=== PATIENT | male | born 1990 | race Caucasian/White ===

== ENCOUNTER → 2019-04-02 | Emergency (ER) | payer SELFPAY ==
[~2019-04-02] VITALS: Ht 160 cm; Wt 78.0 kg
[~2019-04-02] MED LIST: IBUP-1542 PO; IBUPROFEN 600 MG TAB PO ONE
[2019-04-02 14:13] VITALS: BP 124/69; PULSE 69; RESP 18; Ht 160 cm; Wt 78.0 kg
--- NOTE | 2019-04-02 15:06 | ERD ---
ER Documentation Chief Complaint Chief Complaint RIGHT ANKLE PAIN HPI 28-year-old male presents with right ankle pain after twisting while playing soccer today. He has pain in the right lateral malleolus area. Denies any head injury, neck injury, bleeding, additional symptoms. ROS All systems reviewed and are negative except as per history of present illness. Medications Home Meds Active Scripts Ibuprofen* (Motrin*) 600 Mg Tab, 600 MG PO Q6, #20 TAB Prov:GORAN VERDE MD 04/02/19 PMhx/Soc Medical and Surgical Hx: pt denies Medical Hx, pt denies Surgical Hx History of Surgery: No Hx Neurological Disorder: No Hx Respiratory Disorders: No Hx Cardiac Disorders: No Hx Psychiatric Problems: No Hx Miscellaneous Medical Probl: No Hx Alcohol Use: No Hx Substance Use: No Hx Tobacco Use: No Smoking Status: Never smoker Physical Exam Vitals Vital Signs Date Temp Pulse Resp B/P (MAP) Pulse Ox O2 O2 Flow FiO2 Time Delivery Rate 04/02/19 98.1 69 18 124/69 99 14:13 (87) Physical Exam Const: No acute distress Head: Atraumatic Eyes: Normal Conjunctiva ENT: Normal External Ears, Nose and Mouth. Neck: Full range of motion. No meningismus. Resp: Clear to auscultation bilaterally Cardio: Regular rate and rhythm, no murmurs Abd: Soft, non tender, non distended. Normal bowel sounds Skin: No petechiae or rashes Back: No midline or flank tenderness Ext: No cyanosis, or edema. Tenderness and swelling over the right lateral malleolus. No erythema or warmth. No tenderness or deformities of the foot or toes. No appreciable knee or proximal tib-fib tenderness or deformities. Neur: Awake and alert Psych: Normal Mood and Affect Results 24 hrs Current Medications Medications Dose Sig/Verna Start Time Status Last (Trade) Ordered Route PRN Stop Time Admin Dose Reason Admin Ibuprofen 600 mg ONCE ONCE 04/02/19 DC 04/02/19 (Motrin) PO 14:30 14:29 04/02/19 14:31 Procedures/MDM X-ray right ankle 3V Interpreted by me: Bones: No fracture Joints: No dislocation Foreign Body: None. Impression-soft tissue swelling without findings of fracture dislocation on right ankle x-ray Placed in a right ankle stirrup splint neurovascular intact after splint. Patient also administered crutches with crutch training given ibuprofen for pain. Patient presents with signs and symptoms of right ankle sprain without signs of fracture dislocation, ischemia, deficits or infection. Discharged home with ibuprofen, recommendations for ice, elevation, primary care follow-up and return precautions for fevers, redness, new or worsening symptoms. The patient was stable with no new complaints during the ER course. Clinically, there is no current evidence to suggest meningitis, sepsis, acute abdomen, pneumonia, stroke, acute coronary syndrome, pulmonary embolism, aortic dissection or any other emergent condition appearing to require further evaluation or hospitalization. Patient counseled regarding my diagnostic impression and care plan. Prior to discharge all questions answered. Pt agrees with treatment plan and understands strict return precautions. Pt is instructed to follow up with primary care provider within 24-48 hours. Precautionary instructions provided including instructions to return to the ER if not improving or for any worsening or changing symptoms or concerns. Disclaimer: Inadvertent spelling and grammatical errors are likely due to EHR/dictation software use and do not reflect on the overall quality of patient care. Also, please note that the electronic time recorded on this note does not necessarily reflect the actual time of the patient encounter. Departure Diagnosis: Primary Impression: Ankle injury Encounter type: initial encounter Laterality: right Qualified Codes: S99.911A - Unspecified injury of right ankle, initial encounter Condition: Stable Patient Instructions: What Are Ankle Sprains?, Treating Ankle Sprains Referrals: NO PRIMARY,CARE PHYSICIAN (PCP) Additional Instructions: x ray palmer normal. Va al nunez doctor/ specialista para mas evaluacon en el proximo semana. posiblemente necesita autorizado de nunez doctor primario para specialista. Regresa para fiebre, o mas o nueva simptomas. GORAN VERDE MD Apr 02, 2019 15:06
== END | disposition home or self-care (01) ==
LOC: FTE 14:11
DX: S99.911A Unspecified injury of right ankle, initial encounter (principal); X50.0XXA Overexertion from strenuous movement or load, initial encounter; Y92.322 Soccer field as the place of occurrence of the external cause